=== PATIENT | female | born 1995 | race Caucasian/White ===

== ENCOUNTER 2020-08-17 13:26 | Emergency (ER) | payer MEDICAID ==
[~2020-08-17] VITALS: Ht 157.5 cm; Wt 66.8 kg
[~2020-08-17 13:26] MED LIST: BIRTH CONTROL; DOXYCYCLINE 10100 MG PO; FLAGYL500 MG PO; ZOLOFT 25MG25 MG PO
[2020-08-17 13:34] VITALS: TEMP 97.8
[2020-08-17] MEDS ORDERED: PRENATAL FORMU1 EAC3 PO (14:06)
[2020-08-17 15:15] VITALS: BP 116/71; PULSE 105
== END 2020-08-17 15:16 | disposition home or self-care (01) ==
LOC: COL.ER 13:26
DX: O98.513 Other viral diseases complicating pregnancy, third trimester (principal); J06.9 Acute upper respiratory infection, unspecified; Z20.828 Contact with and (suspected) exposure to other viral communicable diseases; Z3A.28 28 weeks gestation of pregnancy

== ENCOUNTER 2021-12-12 07:19 | Emergency (ER) | payer MEDICAID ==
[~2021-12-12] VITALS: Ht 154.9 cm; Wt 63.6 kg
[~2021-12-12 07:19] MED LIST changes: +PRENATAL FORMU1 EAC3 PO
[2021-12-12 07:29] VITALS: TEMP 99
[2021-12-12 08:18] LABS: COLLECTION METHOD CLEAN CATCH
[2021-12-12 08:24] LABS: BASO # 0.1 K/mm3 (0.0-0.2); BASO % 0.4 % (0.0-2.0); EOS % 0.1 % (0.0-4.0); GRAN # 11.4 K/mm3 (1.4-6.5); GRAN % 85.9 % (42.2-75.2); HEMOGLOBIN 10.3 g/dl (12.5-16.0); LYMPH # 1.1 K/mm3 (1.2-3.4); LYMPH % 7.9 % (20.0-51.0); MEAN CELL VOLUME 79 fl (80.0-100.0); MEAN CORPUSCULAR HEMOGLOBIN 25 pg (27-31); MEAN CORPUSCULAR HGB CONC 32 g/dl (33.0-37.0); MEAN PLATELET VOLUME 9.8 fl (7.4-10.4); MONO # 0.7 K/mm3 (0.1-0.6); MONO % 5.3 % (1.7-9.3); PLATELET COUNT 312 K/mm3 (130-400); RED BLOOD COUNT 4.13 M/mm3 (4.10-5.30); REDCELL DISTRIBUTION WIDTH-CV 15.6 % (11.5-14.5)
[2021-12-12 08:25] LABS: HEMATOCRIT 32.5 % (37.0-47.0)
[2021-12-12 08:30] LABS: MUCOUS Present (NOT PRESENT); PH 7 (5-8); SQUAMOUS EPITHELIAL 0-2 /hpf (0-10); URINE APPEARANCE Hazy (CLEAR/HAZY); URINE BACTERIA None Seen /hpf (NONE SEEN); URINE BILIRUBIN Negative (NEGATIVE); URINE BLOOD 1+ (NEGATIVE); URINE COLOR Yellow (YELLOW); URINE GLUCOSE Negative (NEGATIVE); URINE KETONE Negative (NEGATIVE); URINE LEUKOCYTE ESTERASE Negative (NEGATIVE); URINE NITRATE Negative (NEGATIVE); URINE PROTEIN(semi-quant) 1+ (NEGATIVE)
[2021-12-12 08:37] LABS: BILIRUBIN,TOTAL 0.4 mg/dL (0.2-1.2); CALCIUM 9.5 mg/dL (8.4-10.2); CREATININE, serum 0.72 mg/dL (0.57-1.11); POTASSIUM 3.7 mmol/L (3.5-4.5); TOTAL PROTEIN 7.7 gm/dL (6.2-8.1)
[2021-12-12] MEDS ORDERED: ZOFRAN ODT4 MG PO (09:32)
[2021-12-12] MEDS ORDERED: NORCO 325 MG-51 TAB PO (09:32)
[2021-12-12] MEDS ORDERED: CEPHALEXIN500 M1 PO (09:32)
[2021-12-12 10:56] VITALS: BP 111/61; PULSE 104
== END 2021-12-12 10:27 | disposition home or self-care (01) ==
LOC: COL.ER 07:19
PROVIDERS: Personal Emergency Response Attendant
DX: B34.9 Viral infection, unspecified (principal); N39.0 Urinary tract infection, site not specified; Z87.891 Personal history of nicotine dependence; Z20.822 Contact with and (suspected) exposure to COVID-19
CPT/HCPCS: J0696; J2270; J2405; J7030

== ENCOUNTER 2022-05-08 06:57 | Emergency (ER) | payer MEDICAID ==
[~2022-05-08] VITALS: Ht 152.4 cm; Wt 63.6 kg
[~2022-05-08 06:57] MED LIST changes: +CEPHALEXIN500 M1 PO; +NORCO 325 MG-51 TAB PO; +ZOFRAN ODT4 MG PO
[2022-05-08 07:54] LABS: BASO # 0.1 K/mm3 (0.0-0.2); BASO % 0.6 % (0.0-2.0); EOS # 0.1 K/mm3 (0.0-0.7); GRAN % 68.2 % (42.2-75.2); LYMPH % 22.3 % (20.0-51.0); MEAN CELL VOLUME 76 fl (80.0-100.0); MEAN CORPUSCULAR HGB CONC 30 g/dl (33.0-37.0); MEAN PLATELET VOLUME 10.8 fl (7.4-10.4); MONO # 0.7 K/mm3 (0.1-0.6); MONO % 7.4 % (1.7-9.3); PLATELET COUNT 179 K/mm3 (130-400); RED BLOOD COUNT 4.27 M/mm3 (4.10-5.30); REDCELL DISTRIBUTION WIDTH-CV 15.9 % (11.5-14.5)
[2022-05-08 08:04] LABS: ALANINE AMINOTRANSFERASE 7 U/L (0-55); ALKALINE PHOSPHATASE 16 U/L (40-150); ANION GAP 11 mmol/L (7-16); AST,SGOT 18 U/L (5-34); BILIRUBIN,TOTAL 0.5 mg/dL (0.2-1.2); BLOOD UREA NITROGEN 15 mg/dL (7-19); CALCIUM 9.3 mg/dL (8.4-10.2); CARBON DIOXIDE 19 mmol/L (22-29); CHLORIDE 107 mmol/L (98-107); CREATININE, serum 0.68 mg/dL (0.57-1.11); GLUCOSE 85 mg/dL (70-99); POTASSIUM 4.1 mmol/L (3.5-4.5); SODIUM 137 mmol/L (136-145); TOTAL PROTEIN 7.7 gm/dL (6.2-8.1)
[2022-05-08 08:11] LABS: TROPONIN-I < 0.010 ng/mL (0.00-0.033)
[2022-05-08 08:12] LABS: HEMATOCRIT 32.6 % (37.0-47.0); HEMOGLOBIN 9.8 g/dl (12.5-16.0); MEAN CORPUSCULAR HEMOGLOBIN 23 pg (27-31)
[2022-05-08 08:23] LABS: COLLECTION METHOD CLEAN CATCH
[2022-05-08 08:40] LABS: MUCOUS Present (NOT PRESENT); PH 6 (5-8); SQUAMOUS EPITHELIAL None Seen /hpf (0-10); URINE APPEARANCE Clear (CLEAR/HAZY); URINE BACTERIA None Seen /hpf (NONE SEEN); URINE BILIRUBIN Negative (NEGATIVE); URINE BLOOD Negative (NEGATIVE); URINE COLOR Yellow (YELLOW); URINE GLUCOSE Negative (NEGATIVE); URINE KETONE Trace (NEGATIVE); URINE LEUKOCYTE ESTERASE Negative (NEGATIVE); URINE NITRATE Negative (NEGATIVE); URINE PROTEIN(semi-quant) Negative (NEGATIVE); URINE RBC 0-2 /hpf (0-2); URINE UROBILINOGEN Negative (NEGATIVE); URINE WBC 0-2 /hpf (0-2)
[2022-05-08 09:03] VITALS: BP 121/72; PULSE 76; TEMP 98
== END 2022-05-08 09:05 | disposition home or self-care (01) ==
LOC: COL.ER 06:57
PROVIDERS: Emergency Medicine
DX: R53.83 Other fatigue (principal); R07.89 Other chest pain; R06.02 Shortness of breath; D64.9 Anemia, unspecified; Z20.822 Contact with and (suspected) exposure to COVID-19
CPT/HCPCS: J7120